=== PATIENT | male | born 1985 | race Caucasian/White ===

== ENCOUNTER 2017-01-12 16:20 | Emergency (ER) | payer OTHER ==
[~2017-01-12] VITALS: Ht 180.3 cm; Wt 104.3 kg
[2017-01-12] MEDS ORDERED: BENA25TA9 PO (16:47)
[2017-01-12] MEDS ORDERED: NS 1,000 ML IV ONE ×2 (19:00→20:45)
[2017-01-12 19:53] LABS: BASO % 0.1 % (0.0-1.0); EOS # 0.2 K/mm3 (0.0-0.50); EOS % 1.5 % (0.0-3.0); LARGE UNSTAINED CELL # 0.1 K/mm3 (0.0-0.4); LARGE UNSTAINED CELL % 0.7 % (0.0-4.0); LYMPH # 1.1 K/mm3 (1.5-4.5); LYMPH % 7.3 % (24.0-44.0); MEAN CORPUSCULAR HEMOGLOBIN 30.6 pg (27.0-33.0); MEAN CORPUSCULAR HGB CONC 33.8 g/dl (32.0-36.5); MEAN CORPUSCULAR VOLUME 90.5 fl (80.0-96.0); MONO # 0.4 K/mm3 (0.0-0.8); MONO % 2.7 % (0.0-5.0); NEUTROPHILS # 12.1 K/mm3 (1.8-7.7); NEUTROPHILS % 87.7 % (36.0-66.0); PLATELET COUNT, AUTOMATED 200 k/mm3 (150-450); RED CELL DISTRIBUTION WIDTH 12.6 % (11.5-14.5); WHITE BLOOD COUNT 13.8 K/mm3 (4.0-10.0)
[2017-01-12 20:28] LABS: ALBUMIN 4.3 GM/DL (3.2-5.2); ALBUMIN/GLOBULIN RATIO 1.39 (1.00-1.93); ALKALINE PHOSPHATASE 86 U/L (45-117); ALT/SGPT 30 U/L (12-78); AMYLASE 37 U/L (25-115); AST/SGOT 16 U/L (15-37); BILIRUBIN,DIRECT 0.1 MG/DL (0.0-0.2); BILIRUBIN,TOTAL 0.9 MG/DL (0.2-1.0); TOTAL PROTEIN 7.4 GM/DL (6.4-8.2)
[2017-01-12 20:33] LABS: ANION GAP 8 MEQ/L (8-16); BLOOD UREA NITROGEN 17 MG/DL (7-18); CALCIUM LEVEL 9.3 MG/DL (8.5-10.1); CARBON DIOXIDE LEVEL 27 MEQ/L (21-32); CHLORIDE LEVEL 105 MEQ/L (98-107); CREATININE FOR GFR 0.93 MG/DL (0.70-1.30); FREE T4 0.87 NG/DL (0.76-1.46); GLOMERULAR FILTRATION RATE > 60.0 (>60); GLUCOSE, FASTING 93 MG/DL (70-105); MAGNESIUM LEVEL 2.2 MG/DL (1.8-2.4); POTASSIUM SERUM 4.8 MEQ/L (3.5-5.1); SODIUM LEVEL 140 MEQ/L (136-145)
[2017-01-12 21:54] VITALS: BP 159/72
--- NOTE | 2017-01-13 07:22 | ECGEPIP ---
Stationary ECG Study [facility] - ED Test Date: 2017-01-12 Pat Name: LEIDA KHAN Department: Room: - Gender: M Systems Management Consultant: emily : 1985 Requested By: Aziza Yun Order Number: [id number] Reading MD: Nneka Brown Measurements Intervals [place] Rate: 79 P: 42 AL: 180 QRS: 32 QRSD: 98 T: 12 QT: 354 QTc: 407 Interpretive Statements SINUS RHYTHM NSTTW ABNORMALITY NO PRIOR FOR COMPARISON Electronically Signed On 01-13-2017 7:22:34 EDT by Nneka Brown
== END 2017-01-12 22:08 | disposition home or self-care (01) ==
LOC: M ED 17:36
DX: E86.9 Volume depletion, unspecified (principal); R19.7 Diarrhea, unspecified

== ENCOUNTER 2017-04-04 21:33 | Emergency (ER) | payer OTHER ==
[~2017-04-04] VITALS: Ht 180.3 cm; Wt 99.8 kg
[~2017-04-04 21:33] MED LIST: BENA25TA9 PO
[2017-04-04] MEDS ORDERED: DERMABOND TOPICAL SKIN ADHESIVE TOP ONE (22:00)
[2017-04-04] MEDS ORDERED: TETANUS/DIPHTHERIA TOX ADSORB ADULT 0.5ML SYR/VIAL (90714) IM ONE (22:00)
[2017-04-04 22:17] VITALS: BP 143/81
== END 2017-04-04 22:18 | disposition home or self-care (01) ==
LOC: M ED 22:10
DX: S01.81XA Laceration without foreign body of other part of head, initial encounter (principal); X58.XXXA Exposure to other specified factors, initial encounter; Y92.89 Other specified places as the place of occurrence of the external cause; Y93.89 Activity, other specified; Y99.0 Civilian activity done for income or pay

== ENCOUNTER 2017-05-11 20:22 | Emergency (ER) | payer OTHER ==
[~2017-05-11] VITALS: Ht 180.3 cm; Wt 102.7 kg
[~2017-05-11 20:22] MED LIST changes: +BENA25TA10 PO; -BENA25TA9 PO
[2017-05-11 20:28] VITALS: BP 146/81
[2017-05-11] MEDS ORDERED: AUGM875T28 PO (20:40)
[2017-05-11] MEDS ORDERED: AUGMENTIN 875 MG TAB PO ONE (20:45)
== END 2017-05-11 20:55 | disposition home or self-care (01) ==
LOC: M ED 20:22
DX: S61.452A Open bite of left hand, initial encounter (principal); W54.0XXA Bitten by dog, initial encounter; Y92.89 Other specified places as the place of occurrence of the external cause; Y93.89 Activity, other specified; Y99.0 Civilian activity done for income or pay

== ENCOUNTER 2017-06-15 03:32 | Emergency (ER) | payer OTHER ==
[~2017-06-15 03:32] MED LIST changes: +AUGM875T28 PO
[2017-06-15 03:36] VITALS: BP 163/90
[2017-06-15] MEDS ORDERED: LIDOCAINE VISCOUS 2% SOLN 15ML UDC EXT ONE (03:45)
== END 2017-06-15 04:07 | disposition home or self-care (01) ==
LOC: M ED 03:32
DX: T16.1XXA Foreign body in right ear, initial encounter (principal); Y92.89 Other specified places as the place of occurrence of the external cause

== ENCOUNTER → 2017-09-08 | Outpatient (CLI) | payer OTHER ==
--- NOTE | 2017-09-08 16:31 | REP ---
Clinical: Cough . Comparison: 05/09/2010 . Technique: PA and lateral. Findings: The mediastinum and cardiac silhouette are normal. The lung fletcher are clear and without acute consolidation, effusion, or pneumothorax. The skeletal structures are intact and normal. Impression: 1. No acute cardiopulmonary process. Signed by James Sutherland MD 09/08/2017 04:23 P
== END ==
LOC: M LRY 15:58
PROVIDERS: ATTEND Physician Assistant
DX: R05 Cough (principal)

== ENCOUNTER 2018-03-09 19:15 | Emergency (ER) | payer OTHER ==
[2018-03-09] MEDS: EXPOSURE KIT-ADULT 7 DAY SUPPLY PO (19:45)
[2018-03-09 20:09] LABS: BASO # 0.1 10^3/uL (0.0-0.2); BASO % 0.7 % (0.0-1.0); EOS # 0.3 10^3/uL (0.0-0.50); EOS % 3.8 % (0.0-3.0); HEMATOCRIT 43.9 % (42.0-52.0); HEMOGLOBIN 14.8 g/dl (13.5-17.5); IMMATURE GRANULOCYTE % 0.7 % (0-3.0); LYMPH # 2.1 10^3/uL (1.5-4.5); LYMPH % 29.1 % (24.0-44.0); MEAN CORPUSCULAR HGB CONC 33.7 g/dl (32.0-36.5); MEAN CORPUSCULAR VOLUME 88.9 fl (80.0-96.0); MONO # 0.5 10^3/uL (0.0-0.8); MONO % 6.9 % (0.0-5.0); NEUTROPHILS # 4.3 10^3/uL (1.8-7.7); NEUTROPHILS % 58.8 % (36.0-66.0); PLATELET COUNT, AUTOMATED 220 10^3/uL (150-450); RED BLOOD COUNT 4.94 10^6/uL (4.30-6.10); RED CELL DISTRIBUTION WIDTH 12.9 % (11.5-14.5); WHITE BLOOD COUNT 7.4 10^3/uL (4.0-10.0)
[2018-03-09 20:41] LABS: ALBUMIN 4.3 GM/DL (3.2-5.2); ALKALINE PHOSPHATASE 89 U/L (45-117); ALT/SGPT 36 U/L (12-78); ANION GAP 4 MEQ/L (8-16); AST/SGOT 17 U/L (7-37); BILIRUBIN,TOTAL 0.5 MG/DL (0.2-1.0); BLOOD UREA NITROGEN 14 MG/DL (7-18); CALCIUM LEVEL 9.4 MG/DL (8.5-10.1); CARBON DIOXIDE LEVEL 28 MEQ/L (21-32); CHLORIDE LEVEL 108 MEQ/L (98-107); CREATININE FOR GFR 0.99 MG/DL (0.70-1.30); GLOMERULAR FILTRATION RATE > 60.0 (>60); GLUCOSE, FASTING 85 MG/DL (70-100); POTASSIUM SERUM 4.4 MEQ/L (3.5-5.1); SODIUM LEVEL 140 MEQ/L (136-145); TOTAL PROTEIN 7.6 GM/DL (6.4-8.2)
[2018-03-09 21:37] LABS: HIV SCREEN CENTAUR EXPOSED NEGATIVE (NEGATIVE)
[2018-03-11 10:30] LABS: HEPATITIS B SURFACE ANTIBODY POSITIVE (POSITIVE)
[2018-03-11 10:37] LABS: HEPATITIS B SURFACE ANTIGEN NEGATIVE (NEGATIVE)
[2018-03-11 11:04] LABS: HEPATITIS C VIRUS ABY INDEX < 0.0 INDEX (<0.8)
== END 2018-03-09 20:06 | disposition home or self-care (01) ==
LOC: M ED 19:15
DX: Z77.21 Contact with and (suspected) exposure to potentially hazardous body fluids (principal); S61.031A Puncture wound without foreign body of right thumb without damage to nail, initial encounter; W46.0XXA Contact with hypodermic needle, initial encounter; Y92.59 Other trade areas as the place of occurrence of the external cause; Y99.0 Civilian activity done for income or pay; Z79.899 Other long term (current) drug therapy
CPT/HCPCS: 80053

== ENCOUNTER 2018-04-27 04:20 | Emergency (ER) | payer OTHER | END 2018-04-27 04:54 | disposition home or self-care (01) | LOC: M ED 04:20 | DX: Z77.098 Contact with and (suspected) exposure to other hazardous, chiefly nonmedicinal, chemicals (principal); Z87.891 Personal history of nicotine dependence | CPT/HCPCS: 99283 ==

== ENCOUNTER 2018-09-24 02:53 | Inpatient (IN) | payer OTHER ==
[2018-09-24] MEDS: NS 1,000 ML IV ×3 (03:15→14:28)
[2018-09-24 03:21] LABS: HEMATOCRIT 43.8 % (42.0-52.0); HEMOGLOBIN 14.4 g/dl (13.5-17.5); MEAN CORPUSCULAR HEMOGLOBIN 29.8 pg (27.0-33.0); MEAN CORPUSCULAR HGB CONC 32.9 g/dl (32.0-36.5); MEAN CORPUSCULAR VOLUME 90.7 fl (80.0-96.0); PLATELET COUNT, AUTOMATED 234 10^3/uL (150-450); RED BLOOD COUNT 4.83 10^6/uL (4.30-6.10); RED CELL DISTRIBUTION WIDTH 12.7 % (11.5-14.5); WHITE BLOOD COUNT 13.1 10^3/uL (4.0-10.0)
[2018-09-24 03:22] LABS: ADD MANUAL DIFFER YES; DIFF SLIDE NUMBER 82; POSITIVE DIFF POS FLAG
[2018-09-24 03:37] LABS: ATYPICAL LYMPH 6 % (0-5); EOSINOPHILS 2 % (0-5); LYMPHOCYTES 29 % (16-52); MONOCYTES 3 % (0-8); NEUTROPHILS 60 % (35-75); PLATELET CLUMPS SMALL AMT; PLATELET ESTIMATE NORMAL (NORMAL)
[2018-09-24 04:09] LABS: ALBUMIN 4.3 GM/DL (3.2-5.2); ALBUMIN/GLOBULIN RATIO 1.48 (1.00-1.93); ALKALINE PHOSPHATASE 73 U/L (45-117); ALT/SGPT 44 U/L (12-78); ANION GAP 17 MEQ/L (8-16); AST/SGOT 28 U/L (7-37); BILIRUBIN,DIRECT < 0.1 MG/DL (0.0-0.2); BILIRUBIN,TOTAL 0.3 MG/DL (0.2-1.0); BLOOD UREA NITROGEN 17 MG/DL (7-18); CALCIUM LEVEL 9.2 MG/DL (8.5-10.1); CARBON DIOXIDE LEVEL 19 MEQ/L (21-32); CHLORIDE LEVEL 104 MEQ/L (98-107); CK-MB VALUE MASS < 1.0 NG/ML (<3.6); CPK CREATINE PHOSPHOKINASE 136 U/L (39-308); CREATININE FOR GFR 1.61 MG/DL (0.70-1.30); FREE THYROXINE INDEX 2.1 % (1.4-3.8); GLOMERULAR FILTRATION RATE 53.2 (>60); GLUCOSE, FASTING 139 MG/DL (70-100); LIPASE 106 U/L (73-393); MB/CK RELATIVE INDEX 0.74 (< OR =4); POTASSIUM SERUM 4.1 MEQ/L (3.5-5.1); SODIUM LEVEL 140 MEQ/L (136-145); T UPTAKE 31 % (33-40); THYROXINE (T4) 6.8 UG/DL (4.5-12.0); TOTAL PROTEIN 7.2 GM/DL (6.4-8.2); TROPONIN I < 0.02 NG/ML (< 0.10)
[2018-09-24 05:14] LABS: ETHYL ALCOHOL (ETHANOL) < 0.003 % (0.000-0.010)
[2018-09-24] MEDS ORDERED: ONDANSETRON 4MG/2ML VIAL (J2405) IV (05:15)
[2018-09-24 05:19] LABS: LACTIC ACID SEPSIS PROTOCOL 2.6 MMOL/L (0.4-2.0)
[2018-09-24 05:42] LABS: OSMOLALITY SERUM 288 MOSM/KG (275-295)
[2018-09-24 05:58] LABS: CK-MB VALUE MASS < 1.0 NG/ML (<3.6); CPK CREATINE PHOSPHOKINASE 127 U/L (39-308); MB/CK RELATIVE INDEX 0.79 (< OR =4); TROPONIN I < 0.02 NG/ML (< 0.10)
[2018-09-24] MEDS: LEVOTHYROXINE 50MCG TABLET (0.05MG) PO (06:00)
[2018-09-24 06:05] LABS: ABG BASE EXCESS -3.1 (-2.0-2.0); ABG HCO3 21.4 MEQ/L (22.0-26.0); ABG O2 SATURATION 97.5 % (95.0-99.0); ABG PARTIAL PRESSURE CO2 36.6 mmHg (35.0-45.0); ABG PARTIAL PRESSURE O2 98.9 mmHg (75.0-100.0); ABG STANDARD HCO3 21.9 MEQ/L (22.0-26.0); ABG TOTAL CO2 22.5 MEQ/L (22.0-29.0); ABG pH (ARTERIAL) 7.384 UNITS (7.350-7.450)
[2018-09-24] MEDS ORDERED: SENOKOT S TAB PO (09:00)
[2018-09-24 09:31] LABS: OSMOLALITY URINE 514 MOSM/KG (500-800)
[2018-09-24 09:40] LABS: AMORPHOUS SEDIMENT RFX SMALL (NEGATIVE); KETONE, URINE AUTO RFX TRACE mg/dL (NEGATIVE); LEUKOCYTE ESTERASE UR AUTO RFX NEGATIVE (NEGATIVE); MUCUS, URINE RFX SMALL (NEGATIVE); NITRITE, URINE AUTO RFX NEGATIVE (NEGATIVE); RBC, URINE AUTO RFX 1 /HPF (0-3); SPECIFIC GRAVITY UR AUTO RFX 1.014 (1.002-1.035); SQUAM EPITHELIAL CELL UR AURFX 0 /HPF (0-6); WBC, URINE AUTO RFX 0 /HPF (0-3)
[2018-09-24] MEDS: ENOXAPARIN 30 MG/0.3 ML SYR (J1650) SC (09:43)
[2018-09-24 09:45] LABS: CPK CREATINE PHOSPHOKINASE 111 U/L (39-308)
[2018-09-24 09:53] LABS: AMPHETAMINES LEVEL URINE NEGATIVE (NEGATIVE); BARBITURATES URINE NEGATIVE (NEGATIVE); BENZODIAZEPINES URINE NEGATIVE (NEGATIVE); CANNABINOIDS URINE NEGATIVE (NEGATIVE); CHLORIDE,RANDOM URINE 58 MEQ/L; COCAINE METABOLITE URINE NEGATIVE (NEGATIVE); METHADONE URINE NEGATIVE (NEGATIVE); OPIATES URINE NEGATIVE (NEGATIVE); PHENCYCLIDINE URINE NEGATIVE (NEGATIVE); POTASSIUM RANDOM URINE 35.2 MEQ/L; SODIUM,RANDOM URINE 56 MEQ/L; TOTAL PROTEIN,RANDOM URINE 26.9 MG/DL (0.0-12.0)
[2018-09-24 14:20] LABS: HEMATOCRIT 40.8 % (42.0-52.0); HEMOGLOBIN 13.6 g/dl (13.5-17.5); MEAN CORPUSCULAR HEMOGLOBIN 30.3 pg (27.0-33.0); MEAN CORPUSCULAR HGB CONC 33.3 g/dl (32.0-36.5); MEAN CORPUSCULAR VOLUME 90.9 fl (80.0-96.0); PLATELET COUNT, AUTOMATED 211 10^3/uL (150-450); RED BLOOD COUNT 4.49 10^6/uL (4.30-6.10); WHITE BLOOD COUNT 9.3 10^3/uL (4.0-10.0)
[2018-09-24 14:50] LABS: ALBUMIN 3.6 GM/DL (3.2-5.2); ALBUMIN/GLOBULIN RATIO 1.29 (1.00-1.93); ALKALINE PHOSPHATASE 69 U/L (45-117); ALT/SGPT 37 U/L (12-78); ANION GAP 9 MEQ/L (8-16); AST/SGOT 18 U/L (7-37); BILIRUBIN,TOTAL 0.6 MG/DL (0.2-1.0); BLOOD UREA NITROGEN 12 MG/DL (7-18); CALCIUM LEVEL 8.2 MG/DL (8.5-10.1); CARBON DIOXIDE LEVEL 26 MEQ/L (21-32); CHLORIDE LEVEL 109 MEQ/L (98-107); CK-MB VALUE MASS < 1.0 NG/ML (<3.6); CPK CREATINE PHOSPHOKINASE 114 U/L (39-308); CREATININE FOR GFR 1.01 MG/DL (0.70-1.30); GLOMERULAR FILTRATION RATE > 60.0 (>60); GLUCOSE, FASTING 96 MG/DL (70-100); MB/CK RELATIVE INDEX 0.88 (< OR =4); POTASSIUM SERUM 4.2 MEQ/L (3.5-5.1); SODIUM LEVEL 144 MEQ/L (136-145); TOTAL PROTEIN 6.4 GM/DL (6.4-8.2); TROPONIN I < 0.02 NG/ML (< 0.10)
[2018-09-24 18:24] LABS: D-DIMER QUANT 413.58 ng/ml (<500)
[2018-09-25] MEDS: NS 1,000 ML IV (00:02)
[2018-09-25] MEDS ORDERED: SLF 3 ML SYR IV (03:00)
[2018-09-25] MEDS: SLF 3 ML SYR IV (05:17)
[2018-09-25] MEDS: LEVOTHYROXINE 50MCG TABLET (0.05MG) PO (05:24)
[2018-09-25 05:30] LABS: HEMATOCRIT 40.7 % (42.0-52.0); HEMOGLOBIN 12.8 g/dl (13.5-17.5); MEAN CORPUSCULAR HEMOGLOBIN 29.2 pg (27.0-33.0); MEAN CORPUSCULAR HGB CONC 31.4 g/dl (32.0-36.5); MEAN CORPUSCULAR VOLUME 92.9 fl (80.0-96.0); PLATELET COUNT, AUTOMATED 203 10^3/uL (150-450); RED BLOOD COUNT 4.38 10^6/uL (4.30-6.10); RED CELL DISTRIBUTION WIDTH 13.1 % (11.5-14.5); WHITE BLOOD COUNT 7.2 10^3/uL (4.0-10.0)
[2018-09-25 05:47] LABS: ALBUMIN 3.4 GM/DL (3.2-5.2); ALBUMIN/GLOBULIN RATIO 1.17 (1.00-1.93); ALKALINE PHOSPHATASE 66 U/L (45-117); ALT/SGPT 35 U/L (12-78); ANION GAP 5 MEQ/L (8-16); AST/SGOT 15 U/L (7-37); BILIRUBIN,TOTAL 0.4 MG/DL (0.2-1.0); BLOOD UREA NITROGEN 15 MG/DL (7-18); CARBON DIOXIDE LEVEL 27 MEQ/L (21-32); CHLORIDE LEVEL 111 MEQ/L (98-107); CREATININE FOR GFR 0.92 MG/DL (0.70-1.30); GLOMERULAR FILTRATION RATE > 60.0 (>60); GLUCOSE, FASTING 99 MG/DL (70-100); MAGNESIUM LEVEL 2.2 MG/DL (1.8-2.4); POTASSIUM SERUM 4.3 MEQ/L (3.5-5.1); SODIUM LEVEL 143 MEQ/L (136-145); TOTAL PROTEIN 6.3 GM/DL (6.4-8.2)
[2018-09-25] MEDS: ENOXAPARIN 30 MG/0.3 ML SYR (J1650) SC (08:24)
[2018-09-25] MEDS: INFLUENZA QUADRIVALENT PF VACCINE 0.5ML SYRINGE (90686) IM (08:26)
[2018-09-25 16:40] LABS: BEDSIDE GLUCOSE 128 MG/DL (70-105)
== END 2018-09-25 12:22 | disposition home or self-care (01) | DRG 312 ==
LOC: M ED 02:53 → M ED INP 05:03 → M PCU 14:13
PROVIDERS: Hospitalist
DX: I95.1 Orthostatic hypotension (principal); E87.2 Acidosis; N17.9 Acute kidney failure, unspecified; F17.220 Nicotine dependence, chewing tobacco, uncomplicated; E03.9 Hypothyroidism, unspecified; R07.89 Other chest pain; E86.0 Dehydration

== ENCOUNTER → 2018-09-28 | Outpatient (REF) | payer OTHER | LOC: M SFHCPLAZ 10:21 | DX: E03.9 Hypothyroidism, unspecified (principal) ==

== ENCOUNTER → 2018-10-05 | Outpatient (CLI) | payer OTHER | LOC: M CARPUL 09:12 | DX: Z87.09 Personal history of other diseases of the respiratory system (principal) | CPT/HCPCS: 94060 ==

== ENCOUNTER → 2018-11-21 | Outpatient (REF) | payer OTHER ==
[~2018-11-21] MED LIST changes: +LEVO50TA5 PO; +MOTR200T PO; +RALT40TA PO; +TRUVTAB PO; +VENTAER INH; +ZOFR4TAB14 PO
[2018-11-21 12:52] LABS: C REACTIVE PROTEIN QUANTITATIV < 0.30 MG/DL (0.00-0.30)
== END ==
LOC: M SFHCPLAZ 08:44
PROVIDERS: ATTEND Family Medicine
DX: E03.9 Hypothyroidism, unspecified (principal); R53.82 Chronic fatigue, unspecified

== ENCOUNTER → 2019-01-10 | Outpatient (CLI) | payer OTHER | LOC: M SMT 13:12 | PROVIDERS: ATTEND Obstetrics & Gynecology | DX: E03.9 Hypothyroidism, unspecified (principal) ==

== ENCOUNTER → 2019-03-01 | Outpatient (CLI) | payer OTHER ==
--- NOTE | 2019-03-01 15:05 | REP ---
MAXILLOFACIAL CT STUDY WITH OUT CONTRAST: HISTORY: Deviated nasal septum. No comparison imaging. FINDINGS: Frontal sinuses, ethmoid sinuses, sphenoid sinuses and maxillary sinuses are clear. No mucosal thickening is seen. There is a tiny mucous retention cyst inferiorly and medially in the left maxillary sinus. The ostiomeatal complexes are patent bilaterally. Coronal reformatted scans demonstrate asymmetric obliquity to the hard palate such that it is higher on the right than the left. Nasal turbinate soft tissues are more prominent on the right than the left but no nasal polyp is seen. Bony nasal septum deviates to the left with a moderate size septal beak. No intraorbital abnormality is appreciated. Visualized intracranial structures are unremarkable. IMPRESSION: Asymmetry and obliquity of orientation of the hard palate, higher on the right than the left. Leftward nasal septal deviation. Tiny mucous retention cyst left maxillary sinus. Electronically Signed by Leonardo Meredith MD 03/01/2019 03:45 P
== END ==
LOC: M RAD 14:34
PROVIDERS: ATTEND Otolaryngology
DX: J34.2 Deviated nasal septum (principal); J34.1 Cyst and mucocele of nose and nasal sinus

== ENCOUNTER → 2019-04-25 | Outpatient (CLI) | payer OTHER ==
[~2019-04-25] MED LIST changes: +CYCL10TA; +VITA500045
--- NOTE | 2019-04-26 07:42 | REP ---
REASON: Back pain and right lower extremity radicular symptoms. COMPARISON: 01/02/2010. There is partial lumbarization of S1 status quo. Vertebral body height and alignment is within normal limits and unchanged. There is disc space narrowing at L4-5 and L5-S1, which has developed since the last exam. There is no spondylolysis or spondylolisthesis. The pedicles are intact bilaterally. IMPRESSION: L4-5 and L5-S1 disc space narrowing and other findings as described above. Electronically Signed by Anoop Fraser DO 04/26/2019 03:40 P
== END ==
LOC: M WUC 17:09
PROVIDERS: ATTEND Physician Assistant
DX: S39.012A Strain of muscle, fascia and tendon of lower back, initial encounter (principal); X58.XXXA Exposure to other specified factors, initial encounter; Y92.9 Unspecified place or not applicable

== ENCOUNTER 2019-04-29 09:53 | Emergency (ER) | payer OTHER ==
[~2019-04-29] VITALS: Ht 180.3 cm; Wt 104.5 kg
[~2019-04-29 09:53] MED LIST changes: -CYCL10TA; -VITA500045
[2019-04-29] MEDS ORDERED: VITA500045 (10:00)
[2019-04-29] MEDS ORDERED: CYCL10TA (10:00)
[2019-04-29] MEDS ORDERED: KETOROLAC 30 MG/ML VIAL (J1885) IM ONE (10:30)
--- NOTE | 2019-04-29 11:24 | REP ---
The clinical: Midline tenderness. Technique: Axial noncontrast images from T11 through mid sacrum with coronal and sagittal re-formations. Findings: Alignment and lordosis maintained. No acute fracture / compression injury or subluxation. Lumbarization of the S1 vertebral body noted. Endplate sclerosis and moderate disc space narrowing at the L5-L1 level is appreciated with subtle small posterior osteophyte. Mild endplate sclerosis and minimal disc space narrowing at L4-5 noted. Remainder examination is normal. Impression: 1. Lumbarization of the S1 vertebral body. 2. Mild/moderate disc space narrowing and L4-5 and L5-S1 respectively. Electronically Signed by James Sutherland MD 04/29/2019 11:16 A
[2019-04-29 12:04] VITALS: BP 118/72
== END 2019-04-29 12:05 | disposition home or self-care (01) ==
LOC: M ED 09:53
DX: S39.012A Strain of muscle, fascia and tendon of lower back, initial encounter (principal); X58.XXXA Exposure to other specified factors, initial encounter; Y92.89 Other specified places as the place of occurrence of the external cause; Q76.49 Other congenital malformations of spine, not associated with scoliosis; E03.9 Hypothyroidism, unspecified; M54.16 Radiculopathy, lumbar region
CPT/HCPCS: 72131; 96372; 99283; J1885

== ENCOUNTER → 2019-08-21 | Outpatient (CLI) | payer OTHER ==
[~2019-08-21] MED LIST changes: +CYCL10TA; +PROHANCE 279.3MG/ML 15ML VIAL (A9576) As Ordered ONE; +PROHANCE 279.3MG/ML 5ML VIAL (A9576) As Ordered ONE; +VITA500045
--- NOTE | 2019-08-22 08:40 | REP ---
MRI lumbar spine. New: . Indication: Low back pain. Comparison: None. Technique: Multiplanar short and long TR sequences of the lumbar spine were obtained including post-gadolinium imaging. 20 ml IV ProHance were administered. Findings: Vertebral body alignment is anatomic. No worrisome marrow signal is present. The visualized cord is normal. There is a transitional lumbosacral segment with partial lumbarization of S1 and a rudimentary S1/S2 disc. Disc desiccation and disc space narrowing are present at L4/L5, L5/S1 and S1/S2. L1/L2, L2/L3 and L3/L4: There are no disc herniations or areas of significant spinal canal / neural foraminal narrowing. L4/L5: There is a right paracentral disc extrusion with minimal caudal migration superimposed on a diffuse disc bulge. There is severe right and moderate to severe left recess narrowing. The neural foramen are patent. L5/S1: There is a central/left paracentral disc protrusion superimposed on a diffuse disc bulge with bilateral mild facet arthropathy. Mild to moderate left recess narrowing is present. There is mild left greater than right neural foraminal narrowing. S1/S2: There is no focal disc herniation or areas of significant spinal canal / neural foraminal narrowing. Impression: Transitional lumbosacral segment with lumbarization of S1. L4/L5 and L5/S1 disc herniations as described. Electronically Signed by Austin Gtz DO 08/22/2019 08:31 A
== END ==
LOC: M RAD 17:10
PROVIDERS: ATTEND Physician Assistant
DX: M51.26 Other intervertebral disc displacement, lumbar region (principal); M51.27 Other intervertebral disc displacement, lumbosacral region
CPT/HCPCS: 72158; A9576

== ENCOUNTER → 2019-12-12 | Outpatient (REF) | payer OTHER ==
[~2019-12-12] MED LIST changes: -PROHANCE 279.3MG/ML 15ML VIAL (A9576) As Ordered ONE; -PROHANCE 279.3MG/ML 5ML VIAL (A9576) As Ordered ONE
[2019-12-12 16:06] LABS: THYROID STIMULATING HORMONE 2.3 uIU/ML (0.358-3.740)
[2019-12-12 16:07] LABS: TOTAL 25(OH) VITAMIN D 41.4 NG/ML (30.0-100.0)
== END ==
LOC: M LABDRAW1 15:26
PROVIDERS: ATTEND Obstetrics & Gynecology
DX: E55.9 Vitamin D deficiency, unspecified (principal); E03.9 Hypothyroidism, unspecified

== ENCOUNTER 2020-05-23 22:48 | Emergency (ER) | payer OTHER ==
[~2020-05-23 22:48] MED LIST changes: +CYCL-707; -CYCL10TA
[2020-05-23] MEDS ORDERED: carisoprodoL 350 MG TAB ONE (22:49)
[2020-05-23] MEDS ORDERED: predniSONE 20 MG TAB As Ordered ONE (23:31)
[2020-05-23] MEDS ORDERED: predniSONE 20 MG TAB ONE (23:31)
== END 2020-05-23 23:20 | disposition home or self-care (01) ==
LOC: M ED 22:48
DX: M54.42 Lumbago with sciatica, left side (principal); E03.9 Hypothyroidism, unspecified; Z79.899 Other long term (current) drug therapy

== ENCOUNTER → 2020-06-26 | Outpatient (CLI) | payer OTHER ==
[2020-06-26 23:32] LABS: HEMATOCRIT 46.4 % (42.0-52.0); HEMOGLOBIN 15.4 g/dl (13.5-17.5); MEAN CORPUSCULAR HEMOGLOBIN 30.1 pg (27.0-33.0); MEAN CORPUSCULAR HGB CONC 33.2 g/dl (32.0-36.5); MEAN CORPUSCULAR VOLUME 90.8 fl (80.0-96.0); PLATELET COUNT, AUTOMATED 219 10^3/uL (150-450); RED BLOOD COUNT 5.11 10^6/uL (4.30-6.10); WHITE BLOOD COUNT 9.5 10^3/uL (4.0-10.0)
[2020-06-27 00:04] LABS: ALBUMIN 4.2 GM/DL (3.2-5.2); ALT/SGPT 42 U/L (12-78); BILIRUBIN,DIRECT < 0.1 MG/DL (0.0-0.2); BILIRUBIN,TOTAL 0.3 MG/DL (0.2-1.0); BLOOD UREA NITROGEN 18 MG/DL (7-18); CALCIUM LEVEL 9.5 MG/DL (8.5-10.1); CARBON DIOXIDE LEVEL 29 MEQ/L (21-32); CHLORIDE LEVEL 105 MEQ/L (98-107); CREATININE FOR GFR 0.86 MG/DL (0.70-1.30); GLOMERULAR FILTRATION RATE > 60.0 (>60); GLUCOSE, FASTING 90 MG/DL (70-100); POTASSIUM SERUM 4.3 MEQ/L (3.5-5.1); SODIUM LEVEL 141 MEQ/L (136-145); THYROXINE (T4) 6.9 UG/DL (4.5-12.0); TOTAL PROTEIN 7.6 GM/DL (6.4-8.2)
[2020-06-27 11:01] LABS: ESTRADIOL < 19.0 PG/ML (<39.8); LUTEINIZING HORMONE 6.9 mIU/mL (1.5-9.3); PROGESTERONE 0.21 NG/ML (0.28-1.22); PROLACTIN 7.4 NG/ML (2.1-17.7)
[2020-06-28 16:10] LABS: TESTOSTERONE FREE (DIRECT) 8.2 pg/mL (8.7-25.1)
== END ==
LOC: M LAB 22:54
PROVIDERS: ATTEND Plastic Surgery Surgery of the Hand
DX: N62 Hypertrophy of breast (principal)

== ENCOUNTER → 2020-07-24 | Outpatient (CLI) | payer OTHER ==
[2020-07-24 23:43] LABS: PLATELET COUNT, AUTOMATED 209 10^3/uL (150-450)
[2020-07-24 23:54] LABS: INR 0.88; PARTIAL THROMBOPLASTIN TIME 28.5 SECONDS (24.2-38.5); PROTHROMBIN TIME 12.1 SECONDS (12.5-14.3)
== END ==
LOC: M LAB 23:13
PROVIDERS: ATTEND Physician Assistant
DX: M47.816 Spondylosis without myelopathy or radiculopathy, lumbar region (principal)

== ENCOUNTER → 2020-08-15 | Outpatient (CLI) | payer OTHER ==
--- NOTE | 2020-08-15 11:00 | REPMRS ---
Patient History The patient states she had a clinical breast exam in June 2020.Family history of breast cancer at age 35 in sister. 3D TOMOSYNTHESIS WAS PERFORMED. Diagnostic Bilateral Mammo: August 15, 2020 - Exam #: [id number] Bilateral CC and MLO view(s) were taken. Technologist: Beatriz Rainey, Technologist FINDINGS: The breast tissue is almost entirely fat. There is a mild amount of residual fibroglandular tissue which is fairly symmetric. There is no dominant mass, architectural distortion, or clustered microcalcification suggestive of malignancy. Assessment: BI-RADS/ACR category 1 mammogram. Negative Mammogram. Recommendation Routine screening mammogram in 1 year (for women over age 40). This mammogram was interpreted with the aid of an FDA-approved computer-aided dectection system. Electronically Signed By: Javier Allen MD 08/15/20 1100
== END ==
LOC: M WHC 09:46
PROVIDERS: ATTEND Plastic Surgery Surgery of the Hand
DX: N62 Hypertrophy of breast (principal)

== ENCOUNTER → 2020-09-25 | Outpatient (CLI) | payer OTHER | LOC: M LABSMTC 14:54 | PROVIDERS: ATTEND Physical Medicine & Rehabilitation | DX: Z20.828 Contact with and (suspected) exposure to other viral communicable diseases (principal) ==

== ENCOUNTER → 2020-10-04 | Outpatient (CLI) | payer OTHER ==
[2020-10-04 04:17] LABS: FREE T4 0.96 NG/DL (0.76-1.46); THYROID STIMULATING HORMONE 7.62 uIU/ML (0.358-3.740)
== END ==
LOC: M LAB 03:23
PROVIDERS: ATTEND Student in an Organized Health Care Education/Training Program
DX: E03.9 Hypothyroidism, unspecified (principal)

== ENCOUNTER → 2020-10-07 | Outpatient (REF) | payer OTHER | LOC: M SFHCPLAZ 08:58 | PROVIDERS: ATTEND Family Medicine | DX: Z86.39 Personal history of other endocrine, nutritional and metabolic disease (principal) ==

== ENCOUNTER → 2020-10-12 | Outpatient (CLI) | payer OTHER | LOC: M LAB 02:07 | PROVIDERS: ATTEND Student in an Organized Health Care Education/Training Program | DX: Z86.39 Personal history of other endocrine, nutritional and metabolic disease (principal) ==

== ENCOUNTER → 2020-10-29 | Outpatient (CLI) | payer OTHER ==
[2020-10-29 09:48] LABS: ALBUMIN 4.1 GM/DL (3.2-5.2); ALT/SGPT 43 U/L (12-78); BILIRUBIN,TOTAL 0.3 MG/DL (0.2-1.0); BLOOD UREA NITROGEN 15 MG/DL (7-18); CALCIUM LEVEL 9.4 MG/DL (8.5-10.1); CARBON DIOXIDE LEVEL 28 MEQ/L (21-32); CHLORIDE LEVEL 106 MEQ/L (98-107); CREATININE FOR GFR 0.93 MG/DL (0.70-1.30); GLOMERULAR FILTRATION RATE > 60.0 (>60); GLUCOSE, FASTING 95 MG/DL (70-100); IRON (FE) 82 UG/DL (65-175); POTASSIUM SERUM 4.6 MEQ/L (3.5-5.1); SODIUM LEVEL 138 MEQ/L (136-145); TOTAL PROTEIN 7.3 GM/DL (6.4-8.2)
[2020-10-29 09:55] LABS: CORTISOL AM 3.9 UG/DL (4.3-22.4); PROGESTERONE 0.21 NG/ML (0.28-1.22)
[2020-10-29 10:36] LABS: HIV 1&2 SCREEN CENTAUR NEGATIVE (NEGATIVE)
[2020-10-30 11:09] LABS: SEX HORMONE BINDING GLOBULIN 20.5 nmol/L (16.5-55.9); TESTOSTERONE FREE (DIRECT) 8.1 pg/mL (8.7-25.1); TRANSFERRIN 278 mg/dL (177-329)
== END ==
LOC: M LAB 08:43
PROVIDERS: ATTEND Student in an Organized Health Care Education/Training Program
DX: N62 Hypertrophy of breast (principal)

== ENCOUNTER → 2020-11-06 | Outpatient (CLI) | payer OTHER | LOC: M LAB 02:44 | PROVIDERS: ATTEND Student in an Organized Health Care Education/Training Program | DX: N62 Hypertrophy of breast (principal) ==

== ENCOUNTER → 2021-01-10 | Outpatient (CLI) | payer OTHER ==
[2021-01-10 02:31] LABS: THYROID STIMULATING HORMONE 5.82 uIU/ML (0.358-3.740); THYROXINE (T4) 7.4 UG/DL (4.5-12.0)
[2021-01-10 09:10] LABS: TOTAL 25(OH) VITAMIN D 18.1 NG/ML (30.0-100.0)
== END ==
LOC: M LAB 01:42
PROVIDERS: ATTEND Student in an Organized Health Care Education/Training Program
DX: E03.9 Hypothyroidism, unspecified (principal); Z86.39 Personal history of other endocrine, nutritional and metabolic disease

== ENCOUNTER → 2021-01-21 | Outpatient (REF) | payer OTHER | LOC: M SFHCPLAZ 15:20 | PROVIDERS: ATTEND Family Medicine | DX: E03.9 Hypothyroidism, unspecified (principal) ==

== ENCOUNTER → 2021-02-07 | Outpatient (CLI) | payer OTHER ==
[~2021-02-07] MED LIST changes: +KETO10TAB PO
== END ==
LOC: M LAB 02:39
PROVIDERS: ATTEND Internal Medicine Endocrinology, Diabetes & Metabolism
DX: E29.1 Testicular hypofunction (principal)

== ENCOUNTER 2021-02-08 11:08 | Emergency (ER) | payer OTHER ==
[~2021-02-08] VITALS: Ht 180.3 cm; Wt 109.1 kg
[~2021-02-08 11:08] MED LIST changes: -KETO10TAB PO
[2021-02-08] MEDS ORDERED: KETOROLAC TROMETHAMINE 10 MG TAB PO ONE (12:00)
--- NOTE | 2021-02-08 12:23 | REP ---
INDICATION: head trauma/jaw pain. COMPARISON: None. TECHNIQUE: Helical scanning is acquired. 5 mm axial images were reformatted. Coronal MPR images were generated. FINDINGS: Bone window settings demonstrate an intact bony calvarium. There is no evidence of skull fracture or incidental bony calvarial lesion. The visualized paranasal sinuses appear clear. No intraorbital abnormality is seen. On soft tissue window setting images; the lateral, third, and fourth ventricles are normal in size and position. Allen-white differentiation pattern is normal above and below the tentorium. There are is no evidence of intracranial hemorrhage. No mass, edema, infarction, or midline shift is seen. No extra-axial fluid collection is appreciated. IMPRESSION: Negative noncontrast head CT. <Electronically signed by Domingo Meredith > 02/08/21 [id number]
--- NOTE | 2021-02-08 12:25 | REP ---
INDICATION: head trauma/jaw pain. COMPARISON: None. TECHNIQUE: Helical scanning is acquired and overlapping 2 mm high resolution axial images were generated and reviewed at bone and soft tissue window settings. Coronal and sagittal multiplanar re-formations images are generated. FINDINGS: There is no evidence of cervical spine element fracture. No skull base fracture is seen. Cervical vertebral body heights are preserved. Alignment is normal. Facet joints are normally aligned bilaterally at each cervical level on multiplanar re-formations images. There is no evidence of intraspinal or paraspinal hematoma. No extra vertebral abnormality is seen. IMPRESSION: Negative CT study of the cervical spine without contrast. No fracture seen. <Electronically signed by Domingo Meredith > 02/08/21 [id number]
--- NOTE | 2021-02-08 12:27 | REP ---
INDICATION: head trauma/jaw pain. COMPARISON: NONE. TECHNIQUE: Helical scanning is acquired and 2 mm axial images re-formatted. Coronal MPR images are generated and reviewed. FINDINGS: The bony mandible is intact. Maxillary sinuses are clear. Zygomatic arches are intact. No orbital fracture is seen. Nasal bone and inferior maxillary spine are intact. There is a tiny mucous retention cyst in the right maxillary sinus. There is some spray artifact from dental metallic appliance. No skull base fracture is seen. There is leftward deviation of the nasal septum. IMPRESSION: No evidence of maxillofacial fracture. <Electronically signed by Domingo Meredith > 02/08/21 [id number]
[2021-02-08] MEDS ORDERED: DERMABOND TOPICAL SKIN ADHESIVE TOP ONE (12:40)
[2021-02-08] MEDS ORDERED: LIDOCAINE W/EPINEPHRINE 1% 20ML VIAL As Ordered ONE (12:55)
[2021-02-08] MEDS ORDERED: LIDOCAINE W/EPINEPHRINE 1% 20ML VIAL SC ONE (12:55)
[2021-02-08] MEDS ORDERED: KETO10TAB PO (13:12)
[2021-02-08 13:26] VITALS: BP 146/96
== END 2021-02-08 13:27 | disposition home or self-care (01) ==
LOC: M ED 11:08
DX: S06.0X0A Concussion without loss of consciousness, initial encounter (principal); S01.81XA Laceration without foreign body of other part of head, initial encounter; W22.8XXA Striking against or struck by other objects, initial encounter; Y92.89 Other specified places as the place of occurrence of the external cause; J45.909 Unspecified asthma, uncomplicated; E03.9 Hypothyroidism, unspecified; Z79.890 Hormone replacement therapy; Z87.891 Personal history of nicotine dependence

== ENCOUNTER → 2021-03-28 | Outpatient (CLI) | payer OTHER ==
[~2021-03-28] MED LIST changes: +EMTR1TAB16 PO; +KETO10TAB PO; -TRUVTAB PO
== END ==
LOC: M LAB 20:53
PROVIDERS: ATTEND Student in an Organized Health Care Education/Training Program
DX: E03.9 Hypothyroidism, unspecified (principal)

== ENCOUNTER → 2021-04-01 | Outpatient (REF) | payer OTHER | LOC: M SFHCPLAZ 13:35 | PROVIDERS: ATTEND Family Medicine | DX: E03.9 Hypothyroidism, unspecified (principal) ==

== ENCOUNTER → 2021-05-07 | Outpatient (CLI) | payer OTHER ==
[2021-05-07 09:09] LABS: THYROGLOBULIN ANTIBODY 81.1 U/ML (<60.0); THYROID PEROXIDASE ANTIBODY > 1300.0 U/ML (<60.0)
== END ==
LOC: M LAB 06:00
PROVIDERS: ATTEND Student in an Organized Health Care Education/Training Program
DX: E03.9 Hypothyroidism, unspecified (principal)

== ENCOUNTER 2021-09-20 14:03 | Emergency (ER) | payer OTHER ==
[~2021-09-20] VITALS: Ht 180.3 cm; Wt 104.5 kg
[2021-09-20 14:04] VITALS: BP 127/69
[2021-09-20] MEDS ORDERED: IBUP80TA PO (14:15)
[2021-09-20] MEDS ORDERED: Dayquil (14:15)
== END 2021-09-20 16:18 | disposition left against medical advice (07) ==
LOC: M ED 14:03
DX: Z53.29 Procedure and treatment not carried out because of patient's decision for other reasons (principal)

== ENCOUNTER → 2021-11-21 | Outpatient (CLI) | payer OTHER ==
[~2021-11-21] MED LIST changes: +Dayquil; +IBUP80TA PO
== END ==
LOC: M PLALAB 14:29
PROVIDERS: ATTEND Student in an Organized Health Care Education/Training Program
DX: I26.99 Other pulmonary embolism without acute cor pulmonale (principal); E06.3 Autoimmune thyroiditis

== ENCOUNTER → 2021-11-27 | Outpatient (CLI) | payer OTHER | LOC: M CARPUL 09:26 | PROVIDERS: ATTEND Student in an Organized Health Care Education/Training Program | DX: R55 Syncope and collapse (principal) ==

== ENCOUNTER → 2023-01-20 | Outpatient (CLI) | payer OTHER ==
[2023-01-20 14:16] LABS: BASO # 0.1 10^3/uL (0.0-0.2); BASO % 0.7 % (0.0-1.0); EOS # 0.3 10^3/uL (0.0-0.5); EOS % 3.3 % (0.0-3.0); HEMATOCRIT 52.7 % (42.0-52.0); HEMOGLOBIN 16.7 g/dl (13.5-17.5); LYMPH % 31.1 % (24.0-44.0); MEAN CORPUSCULAR HEMOGLOBIN 30.4 pg (27.0-33.0); MEAN CORPUSCULAR HGB CONC 31.7 g/dl (32.0-36.5); MEAN CORPUSCULAR VOLUME 95.8 fl (80.0-96.0); MONO % 10.6 % (2.0-8.0); NEUTROPHILS # 5.1 10^3/uL (1.5-8.5); NEUTROPHILS % 53.2 % (36.0-66.0); PLATELET COUNT, AUTOMATED 195 10^3/uL (150-450); WHITE BLOOD COUNT 9.6 10^3/uL (4.0-10.0)
[2023-01-20 14:42] LABS: HEMOGLOBIN A1c 5.1 % (4.0-6.0)
[2023-01-20 14:43] LABS: ALBUMIN 4.4 G/DL (3.2-5.2); ALKALINE PHOSPHATASE 86 U/L (46-116); ALT/SGPT 29 U/L (7.0-40); AST/SGOT 18 U/L (<34); BILIRUBIN,TOTAL 0.5 MG/DL (0.3-1.2); BLOOD UREA NITROGEN 16 MG/DL (9-23); CARBON DIOXIDE LEVEL 30 MMOL/L (20-31); CHLORIDE LEVEL 103 MMOL/L (98-107); CHOLESTEROL LEVEL 193 MG/DL (<200); CHOLESTEROL RISK RATIO 4.76 (<5); CREATININE FOR GFR 0.86 MG/DL (0.70-1.30); FREE T4 1.24 NG/DL (0.89-1.76); GLOMERULAR FILTRATION RATE > 60.0 (>60); GLUCOSE, FASTING 87 MG/DL (60-100); HDL CHOLESTEROL 40.5 MG/DL (>40); LDL CHOLESTEROL 114.3 MG/DL (<100); NON-HDL-C 152.5 MG/DL; SODIUM LEVEL 138 MMOL/L (136-145); THYROID STIMULATING HORMONE 3.351 uIU/ML (0.55-4.78); TOTAL PROTEIN 7.2 G/DL (5.7-8.2); TRIGLYCERIDES LEVEL 191 MG/DL (<150)
[2023-01-20 14:45] LABS: VITAMIN B12 LEVEL 457 PG/ML (211-911)
[2023-01-21 19:07] LABS: TESTOSTERONE FREE (DIRECT) 27.8 pg/mL (8.7-25.1)
== END ==
LOC: M PLALAB 09:53
PROVIDERS: ATTEND Nurse Practitioner Family
DX: E03.9 Hypothyroidism, unspecified (principal); R53.82 Chronic fatigue, unspecified; Z13.1 Encounter for screening for diabetes mellitus; E29.1 Testicular hypofunction; Z13.220 Encounter for screening for lipoid disorders

== ENCOUNTER → 2023-06-09 | Outpatient (REF) | payer OTHER | LOC: M LAB REF 20:54 | PROVIDERS: ATTEND Physician Assistant Medical | DX: R52 Pain, unspecified (principal) ==

== ENCOUNTER → 2023-06-18 | Outpatient (CLI) | payer OTHER | LOC: M PLARAD 13:25 | PROVIDERS: ATTEND Nurse Practitioner Family | DX: R59.0 Localized enlarged lymph nodes (principal); R06.6 Hiccough ==

== ENCOUNTER → 2023-09-15 | Outpatient (CLI) | payer OTHER ==
[2023-09-15 17:50] LABS: ALBUMIN 4.5 G/DL (3.2-5.2); ALKALINE PHOSPHATASE 84 U/L (46-116); ALT/SGPT 35 U/L (7.0-40); AST/SGOT 20 U/L (<34); BILIRUBIN,TOTAL 0.6 MG/DL (0.3-1.2); BLOOD UREA NITROGEN 18 MG/DL (9-23); CALCIUM LEVEL 9.6 MG/DL (8.5-10.1); CARBON DIOXIDE LEVEL 27 MMOL/L (20-31); CHLORIDE LEVEL 102 MMOL/L (98-107); CHOLESTEROL LEVEL 215 MG/DL (<200); CHOLESTEROL RISK RATIO 3.89 (<5); CREATININE FOR GFR 0.82 MG/DL (0.70-1.30); GLOMERULAR FILTRATION RATE > 60.0 (>60); GLUCOSE, FASTING 84 MG/DL (60-100); HDL CHOLESTEROL 55.2 MG/DL (>40); NON-HDL-C 159.8 MG/DL; POTASSIUM SERUM 4.3 MMOL/L (3.5-5.1); SODIUM LEVEL 137 MMOL/L (136-145); TOTAL PROTEIN 7.5 G/DL (5.7-8.2); TRIGLYCERIDES LEVEL 119 MG/DL (<150)
[2023-09-15 17:51] LABS: THYROID STIMULATING HORMONE 2.143 uIU/ML (0.55-4.78)
[2023-09-15 17:52] LABS: TOTAL 25(OH) VITAMIN D 18.4 NG/ML (20.0-100.0)
== END ==
LOC: M PLALAB 15:39
PROVIDERS: ATTEND Nurse Practitioner Family
DX: E03.9 Hypothyroidism, unspecified (principal); E55.9 Vitamin D deficiency, unspecified; E78.2 Mixed hyperlipidemia

== ENCOUNTER 2024-01-11 23:42 | Emergency (ER) | payer OTHER ==
[~2024-01-11] VITALS: Ht 180.3 cm; Wt 109.0 kg
[2024-01-11 23:51] VITALS: BP 140/87; TEMP 97.8; O2SAT 97
[2024-01-12] MEDS: LIDOCAINE 1% MDV 20ML VIAL SC ONE (00:20)
== END 2024-01-12 00:54 | disposition home or self-care (01) ==
LOC: M ED 23:42
DX: S01.111A Laceration without foreign body of right eyelid and periocular area, initial encounter (principal); W22.8XXA Striking against or struck by other objects, initial encounter; E03.9 Hypothyroidism, unspecified; Y92.9 Unspecified place or not applicable; Y93.89 Activity, other specified; Y99.0 Civilian activity done for income or pay; Z79.890 Hormone replacement therapy; Z79.1 Long term (current) use of non-steroidal anti-inflammatories (NSAID); Z79.899 Other long term (current) drug therapy

== ENCOUNTER 2024-08-13 03:03 | Emergency (ER) | payer OTHER ==
[~2024-08-13] VITALS: Ht 180.3 cm; Wt 111.4 kg
[2024-08-13 03:17] VITALS: TEMP 98.8
[2024-08-13 03:39] LABS: VENOUS BASE EXCESS -8.4 (-2.0-2.0); VENOUS HCO3 16.8 MMOL/L (23.0-27.0); VENOUS O2 SATURATION 89.8 % (60.0-80.0); VENOUS PARTIAL PRESSURE CO2 34.5 mmHg (38.0-50.0); VENOUS PARTIAL PRESSURE O2 62.9 mmHg (30.0-50.0); VENOUS PH 7.305 UNITS (7.330-7.430); VENOUS STANDARD HCO3 17.8 MMOL/L; VENOUS TOTAL CO2 17.8 MMOL/L (24.0-28.0)
[2024-08-13 03:55] LABS: BASO % 0.4 % (0.0-1.0); EOS # 0.3 10^3/uL (0.0-0.5); EOS % 2.6 % (0.0-3.0); HEMATOCRIT 50.3 % (42.0-52.0); HEMOGLOBIN 16.9 g/dl (13.5-17.5); LYMPH # 4.4 10^3/uL (1.5-5.0); LYMPH % 39.6 % (24.0-44.0); MEAN CORPUSCULAR HEMOGLOBIN 30.5 pg (27.0-33.0); MEAN CORPUSCULAR HGB CONC 33.6 g/dl (32.0-36.5); MEAN CORPUSCULAR VOLUME 90.8 fl (80.0-96.0); MONO # 0.7 10^3/uL (0.0-0.8); MONO % 6.6 % (2.0-8.0); NEUTROPHILS # 5.6 10^3/uL (1.5-8.5); PLATELET COUNT, AUTOMATED 239 10^3/uL (150-450); RED BLOOD COUNT 5.54 10^6/uL (4.30-6.10); WHITE BLOOD COUNT 11.1 10^3/uL (4.0-10.0)
[2024-08-13] MEDS: NS 1,000 ML IV ONE (04:08)
[2024-08-13 04:13] LABS: BLOOD UREA NITROGEN 15 MG/DL (9-23); CALCIUM LEVEL 10.6 MG/DL (8.5-10.1); CARBON DIOXIDE LEVEL 19 MMOL/L (20-31); CHLORIDE LEVEL 104 MMOL/L (98-107); CK-MB VALUE MASS 1.6 NG/ML (<3.6); CREATININE FOR GFR 1.28 MG/DL (0.70-1.30); GLOMERULAR FILTRATION RATE > 60.0 (>60); GLUCOSE, FASTING 120 MG/DL (60-100); MAGNESIUM LEVEL 2.9 MG/DL (1.8-2.4); POTASSIUM SERUM 4.2 MMOL/L (3.5-5.1); SODIUM LEVEL 138 MMOL/L (136-145)
[2024-08-13 04:16] LABS: THYROID STIMULATING HORMONE 9.318 uIU/ML (0.55-4.78)
[2024-08-13 04:28] LABS: CPK CREATINE PHOSPHOKINASE 9077 U/L (46-171); MB/CK RELATIVE INDEX 0.01 (< OR =4)
[2024-08-13] MEDS ORDERED: ISOVUE-370 76% 100ML VIAL As Ordered ONE (05:04)
[2024-08-13 05:16] LABS: CK-MB VALUE MASS 2.3 NG/ML (<3.6)
[2024-08-13 05:37] LABS: MB/CK RELATIVE INDEX 0.03 (< OR =4)
[2024-08-13] MEDS ORDERED: LEVO750T14 PO (05:53)
[2024-08-13] MEDS: LevoFLOXacin 750 MG TABLET PO ONE (05:55)
[2024-08-13 06:18] VITALS: O2SAT 97
[2024-08-13 06:26] VITALS: BP 132/80
== END 2024-08-13 06:30 | disposition home or self-care (01) ==
LOC: M ED 03:03
DX: R55 Syncope and collapse (principal); J18.9 Pneumonia, unspecified organism; R74.8 Abnormal levels of other serum enzymes; M25.551 Pain in right hip; I45.10 Unspecified right bundle-branch block; J45.909 Unspecified asthma, uncomplicated; E03.9 Hypothyroidism, unspecified; E55.9 Vitamin D deficiency, unspecified; F10.10 Alcohol abuse, uncomplicated; Z79.1 Long term (current) use of non-steroidal anti-inflammatories (NSAID); Z79.899 Other long term (current) drug therapy
CPT/HCPCS: 71045; 71275; 73502; 80048; 82550; 82553; 82803; 83735; 84443; 84484; 85025; 93005; 93041; 94760; 96360; 96361; 99285; Q9967

== ENCOUNTER → 2024-09-04 | Outpatient (CLI) | payer OTHER ==
[~2024-09-04] MED LIST changes: +LEVO75TAB PO
[2024-09-04 10:49] LABS: BASO # 0.1 10^3/uL (0.0-0.2); BASO % 0.8 % (0.0-1.0); EOS # 0.3 10^3/uL (0.0-0.5); EOS % 4.4 % (0.0-3.0); HEMATOCRIT 46.9 % (42.0-52.0); HEMOGLOBIN 15.9 g/dl (13.5-17.5); LYMPH % 31.3 % (24.0-44.0); MEAN CORPUSCULAR HEMOGLOBIN 30.5 pg (27.0-33.0); MEAN CORPUSCULAR HGB CONC 33.9 g/dl (32.0-36.5); MONO # 0.5 10^3/uL (0.0-0.8); MONO % 7.2 % (2.0-8.0); NEUTROPHILS # 3.6 10^3/uL (1.5-8.5); NEUTROPHILS % 55.2 % (36.0-66.0); PLATELET COUNT, AUTOMATED 199 10^3/uL (150-450); RED BLOOD COUNT 5.21 10^6/uL (4.30-6.10); WHITE BLOOD COUNT 6.5 10^3/uL (4.0-10.0)
[2024-09-04 11:11] LABS: HEMOGLOBIN A1c 5.6 % (4.0-6.0)
[2024-09-04 11:17] LABS: ALBUMIN 4.1 G/DL (3.2-5.2); ALKALINE PHOSPHATASE 88 U/L (40-129); ALT/SGPT 46 U/L (7.0-40); AST/SGOT 19 U/L (<34); BILIRUBIN,TOTAL 0.8 MG/DL (0.3-1.2); BLOOD UREA NITROGEN 17 MG/DL (9-23); CALCIUM LEVEL 9.7 MG/DL (8.5-10.1); CARBON DIOXIDE LEVEL 30 MMOL/L (20-31); CHLORIDE LEVEL 107 MMOL/L (98-107); CHOLESTEROL LEVEL 218 MG/DL (<200); CHOLESTEROL RISK RATIO 4.12 (<5); CREATININE FOR GFR 0.97 MG/DL (0.70-1.30); GLOMERULAR FILTRATION RATE > 60.0 (>60); GLUCOSE, FASTING 93 MG/DL (60-100); HDL CHOLESTEROL 52.9 MG/DL (>40); LDL CHOLESTEROL 100.9 MG/DL (<100); NON-HDL-C 165.1 MG/DL; POTASSIUM SERUM 4.5 MMOL/L (3.5-5.1); SODIUM LEVEL 140 MMOL/L (136-145); TOTAL PROTEIN 7.1 G/DL (5.7-8.2); TRIGLYCERIDES LEVEL 321 MG/DL (<150)
[2024-09-04 11:18] LABS: CPK CREATINE PHOSPHOKINASE 93 U/L (46-171)
[2024-09-04 11:21] LABS: TOTAL 25(OH) VITAMIN D 18.7 NG/ML (20.0-100.0)
[2024-09-04 11:22] LABS: FREE T4 1.16 NG/DL (0.89-1.76)
== END ==
LOC: M PLALAB 09:19
PROVIDERS: ATTEND Nurse Practitioner Family
DX: E03.9 Hypothyroidism, unspecified (principal)

== ENCOUNTER 2024-09-11 00:21 | Emergency (ER) | payer OTHER ==
[~2024-09-11] VITALS: Ht 180.3 cm; Wt 104.1 kg
[2024-09-11 00:23] VITALS: BP 135/74; TEMP 99; O2SAT 96
[2024-09-11] MEDS ORDERED: METH-1165 PO (01:38)
[2024-09-11] MEDS ORDERED: NAPR-837 PO (01:38)
[2024-09-11] MEDS: methocarbamoL 750 MG TAB PO ONE (01:58)
[2024-09-11] MEDS: KETOROLAC 60MG 2ML VIAL IM ONE (01:58)
== END 2024-09-11 02:13 | disposition home or self-care (01) ==
LOC: M ED 00:21
DX: S16.1XXA Strain of muscle, fascia and tendon at neck level, initial encounter (principal); Y92.9 Unspecified place or not applicable; Y93.9 Activity, unspecified; Y99.0 Civilian activity done for income or pay; E03.9 Hypothyroidism, unspecified; F17.290 Nicotine dependence, other tobacco product, uncomplicated; Z79.1 Long term (current) use of non-steroidal anti-inflammatories (NSAID); Z79.899 Other long term (current) drug therapy
CPT/HCPCS: 96372; 99283; J1885

== ENCOUNTER → 2024-10-02 | Outpatient (CLI) | payer OTHER ==
[~2024-10-02] MED LIST changes: +METH-1165 PO; +NAPR-837 PO
== END ==
LOC: M SLEEP HO 10:52
PROVIDERS: ATTEND Nurse Practitioner Family
DX: R53.82 Chronic fatigue, unspecified (principal); G47.33 Obstructive sleep apnea (adult) (pediatric)

== ENCOUNTER → 2024-10-03 | Outpatient (CLI) | payer OTHER | LOC: M RAD 07:57 | PROVIDERS: ATTEND Nurse Practitioner Family | DX: R55 Syncope and collapse (principal) ==

== ENCOUNTER → 2024-10-05 | Outpatient (CLI) | payer OTHER | LOC: M RAD 11:59 | PROVIDERS: ATTEND Nurse Practitioner Family | DX: R55 Syncope and collapse (principal) ==

== ENCOUNTER → 2024-10-16 | Outpatient (REF) | payer OTHER | LOC: M SFHCPLAZ 14:58 | PROVIDERS: ATTEND Physician Assistant Medical | DX: J06.9 Acute upper respiratory infection, unspecified (principal) ==

== ENCOUNTER → 2025-09-25 | Outpatient (CLI) | payer OTHER ==
[~2025-09-25] MED LIST changes: +METHACHOLINE KIT (6 VIAL.NEB PREMIX) INH ONE; +REGL10TA6 PO
== END ==
LOC: M CARPUL 09:44
PROVIDERS: ATTEND Physician Assistant
DX: R06.02 Shortness of breath (principal)

== ENCOUNTER 2025-09-26 07:56 | Emergency (ER) | payer OTHER ==
[~2025-09-26] VITALS: Ht 180.3 cm; Wt 114.0 kg
[~2025-09-26 07:56] MED LIST changes: -METHACHOLINE KIT (6 VIAL.NEB PREMIX) INH ONE
[2025-09-26 09:25] VITALS: BP 142/80
[2025-09-26 09:26] VITALS: TEMP 99; O2SAT 93
== END 2025-09-26 09:31 | disposition home or self-care (01) ==
LOC: M ED 07:56 → EDUNIT# 07:56 → EDBD 07:56 → M ED 09:31
DX: S06.0X0A Concussion without loss of consciousness, initial encounter (principal); S80.01XA Contusion of right knee, initial encounter; S60.222A Contusion of left hand, initial encounter; Y92.9 Unspecified place or not applicable; Y93.9 Activity, unspecified; Y99.9 Unspecified external cause status; V49.40XA Driver injured in collision with unspecified motor vehicles in traffic accident, initial encounter; Z79.899 Other long term (current) drug therapy